=== PATIENT | male | born 1990 ===

== ENCOUNTER 2021-10-13 11:04 | Day surgery (SDC) | payer OTHER ==
[~2021-10-13] VITALS: Ht 179.1 cm; Wt 68.0 kg
== END 2021-10-13 17:00 | disposition home or self-care (01) ==
LOC: CIR.AMB 11:04
PROVIDERS: ATTEND Otolaryngology Otology & Neurotology
DX: J38.1 Polyp of vocal cord and larynx (principal); Z20.822 Contact with and (suspected) exposure to COVID-19; Z91.013 Allergy to seafood; R49.0 Dysphonia; J45.909 Unspecified asthma, uncomplicated; E16.2 Hypoglycemia, unspecified